=== PATIENT | female | born 1995 | race Caucasian/White ===

== ENCOUNTER 2023-12-20 17:40 | Emergency (ER) | payer OTHER ==
[2023-12-20 18:07] VITALS: BP 130/79; PULSE 118; RESP 16; TEMP 98.3; BMI 26.4
== END 2023-12-20 19:12 | disposition home or self-care (01) ==
LOC: JER 17:40
DX: O26.872 Cervical shortening, second trimester (principal); Z3A.21 21 weeks gestation of pregnancy
CPT/HCPCS: 99283-25